=== PATIENT | male | born 1955 | race Caucasian/White ===

== ENCOUNTER → 2020-09-09 | Outpatient (CLI) | payer MEDICARE, OTHER ==
[~2020-09-09] MED LIST: OMEP20CA12
== END ==
LOC: CARD 15:25
PROVIDERS: ATTEND Nurse Practitioner Family
DX: Z13.6 Encounter for screening for cardiovascular disorders (principal)
CPT/HCPCS: 93005

== ENCOUNTER → 2020-12-10 | Outpatient (CLI) | payer MEDICARE, OTHER ==
--- NOTE | 2020-12-10 11:09 | Diagnostic Imaging Report ---
PROCEDURE: MRI lumbar spine. TECHNIQUE: Multiplanar, multisequence MRI of the lumbar spine was performed without contrast. INDICATION: Chronic low back pain. Recent heavy lifting. Radiculopathy. COMPARISON: Lumbar spine radiographs 01/18/2010. FINDINGS: There are 5 lumbar-type vertebral bodies for the purposes of this report. Normal alignment. Vertebral body heights are preserved. Moderate degenerative endplate changes are greatest in the thoracolumbar junction. No abnormal signal in the conus which terminates at T12-L1. Normal morphology of the cauda equina. No acute findings in the visualized paravertebral soft tissues or pelvis. T12-L1: Annular disc bulge results in moderate right and mild left lateral recess narrowing. Mild spinal canal narrowing. Moderate right neural foraminal narrowing. L1-L2: Annular disc bulge and facet arthropathy results in severe left and mild right lateral recess narrowing. Moderate spinal canal narrowing. Severe right and moderate left neural foraminal narrowing. L2-L3: Annular disc bulge and facet arthropathy result in moderate spinal canal and bilateral lateral recess narrowing. Severe left and moderate right neural foraminal narrowing. L3-L4: Annular disc bulge, ligamentous hypertrophy and facet arthropathy all result in moderate to severe spinal canal stenosis. Severe right and moderate left lateral recess narrowing. Moderate bilateral neural foraminal narrowing. L4-L5: Annular disc bulge, ligamentous hypertrophy and facet arthropathy all result in severe spinal canal stenosis. Moderate to severe bilateral neural foraminal narrowing. L5-S1: Central disc protrusion results in mild spinal canal and bilateral lateral recess narrowing. Facet arthropathy also contributes to mild bilateral neural foraminal narrowing. IMPRESSION: 1. Spondylotic changes result in severe spinal canal stenosis at L4-L5, moderate to severe at L3-L4 and moderate at L1-L2 and L2-L3. 2. Multilevel high-grade lateral recess and neural foraminal narrowing detailed above level by level. 3. No acute osseous findings. Dictated by: Dictated on workstation # [id number]
== END ==
LOC: RAD 09:08
PROVIDERS: ATTEND Nurse Practitioner Family
DX: M48.07 Spinal stenosis, lumbosacral region (principal); M51.17 Intervertebral disc disorders with radiculopathy, lumbosacral region; M47.26 Other spondylosis with radiculopathy, lumbar region; M51.15 Intervertebral disc disorders with radiculopathy, thoracolumbar region; M48.05 Spinal stenosis, thoracolumbar region; X50.0XXA Overexertion from strenuous movement or load, initial encounter
CPT/HCPCS: 72148

== ENCOUNTER → 2021-11-02 | Outpatient (CLI) | payer MEDICARE, OTHER ==
--- NOTE | 2021-11-02 12:56 | Diagnostic Imaging Report ---
PROCEDURE: US Scrotum. TECHNIQUE: Multiple Real-time grayscale images were obtained over the scrotum in various projections bilaterally. INDICATION: Right testicular pain. FINDINGS: The right testicle measures 4.8 x 2.0 x 2.6 cm and the left testicle measures 4.5 x 2.0 x 2.8 cm. Both testes demonstrate a homogeneous echotexture. No discrete testicular mass is detected. There is blood flow to both testes. There is a tiny 2 to 3 mm left epididymal head cyst. Both epididymides do show some parenchymal heterogeneity and perhaps some slight increased vascularity which may be owing to epididymitis. There is no hydrocele or varicocele present. IMPRESSION: 1. No evidence of testicular mass or vascular compromise. 2. There is some mild enlargement and slight increased vascularity to the epididymides bilaterally, perhaps on the basis of epididymitis. No other significant abnormality is detected. Dictated by: Dictated on workstation # [id number]
== END ==
LOC: RAD 11:15
PROVIDERS: ATTEND Nurse Practitioner Family
DX: N50.811 Right testicular pain (principal)
CPT/HCPCS: 76870

== ENCOUNTER 2022-11-16 05:36 | Outpatient (CLI) | payer MEDICARE, OTHER ==
[~2022-11-16] VITALS: Ht 180.3 cm; Wt 89.5 kg
[2022-11-16] MEDS ORDERED: OXYB5TAB13 PO (15:33)
[2022-11-16] MEDS ORDERED: HYDR-3820 PO (15:33)
[2022-11-16] MEDS ORDERED: AMT10T PO (15:33)
== END 2022-11-16 15:51 | disposition home or self-care (01) ==
LOC: PREOP 05:36
PROVIDERS: ATTEND Specialist
DX: Z01.818 Encounter for other preprocedural examination (principal)

== ENCOUNTER 2022-11-24 06:30 | Day surgery (SDC) | payer MEDICARE, OTHER ==
[~2022-11-24] VITALS: Ht 180.3 cm; Wt 89.5 kg
[~2022-11-24 06:30] MED LIST changes: +AMT10T PO; +HYDR-3820 PO; +OXYB5TAB13 PO
[2022-11-24 06:40] VITALS: BP 132/89
[2022-11-24] MEDS ORDERED: MIDAZOLAM 2 MG/2 ML (VERSED) VIAL ONE (06:44)
[2022-11-24] MEDS: TETRACAINE 0.5% OPHTH SOLN 4 ML BTL (SINGLE DOSE ONLY) OU PRN ×4 (06:55→07:09)
[2022-11-24] MEDS ORDERED: MOXIFLOXACIN OPHTH SOLN 5 MG/ML 0.3 ML SYRINGE OP ONE (07:00)
[2022-11-24] MEDS ORDERED: TIMOLOL 0.5% (CATARACTS) 0.3 ML BTL OU PRN (07:00)
[2022-11-24] MEDS ORDERED: POVIDONE (BETADINE) OPHTH SOLN 5% 30 ML OP ONE (07:00)
[2022-11-24] MEDS: TROPICAMIDE 1% OPH SOLN (MYDRIACYL) 15 ML BTL OP SCH ×3 (07:01→07:13)
[2022-11-24] MEDS: PHENYLEPHRINE 10% OPHTH (NEO-SYN) 5 ML BTL OU SCH ×3 (07:01→07:13)
--- NOTE | 2022-11-24 08:05 | Ophthalmology Operative Report ---
Cataract removal/placement IOL PREOPERATIVE DIAGNOSIS: Cataract Right Eye POSTOPERATIVE DIAGNOSIS: Cataract Right Eye PROCEDURE: Cataract removal and placement of posterior chamber implant, right eye SURGEON: Galdino Maynard ANESTHESIA: Topical with sedation COMPLICATIONS: None ESTIMATED BLOOD LOSS: Minimal DESCRIPTION OF PROCEDURE: After proper informed consent was obtained, the patient, a 67 male, was taken to the Operating Room and the right eye was anesthetized with tetracaine. The right eye was then prepped and draped in the usual manner. A wire lid speculum was placed. A paracentesis was made at the left hand position. Preservative free lidocaine was injected into the anterior chamber followed by viscoelastic. A clear corneal incision was made in the temporal position. A capsulorrhexis was preformed and the central nuclear and cortical material were removed. The posterior capsule was polished and Nitin 20.5 AU00T0 IOL was placed into the capsular bag. The residual viscoelastic was aspirated and balanced saline solution was injected into the anterior chamber. Moxifloxacin was injected into the anterior chamber. The wound was checked and found to be water tight. The patient tolerated the procedure well without complications. GALDINO MAYNARD MD Nov 24, 2022 08:05
--- NOTE | 2022-11-24 08:05 | Ophthalmologist Pre-Op Note ---
Pre-Operative Progress Note H&P Reviewed The H&P was reviewed, patient examined and no changes noted. Date H&P Reviewed: Nov 24, 2022 Time H&P Reviewed: 07:40 Pre-Op Dx Cataract, Right Eye PETRA MAYNARD MD Nov 24, 2022 08:05
[2022-11-24 08:16] VITALS: BP 140/80
[2022-11-24] MEDS ORDERED: acetaZOLAMIDE ER 500 MG CAP (DIAMOX SEQUELS) PO ONE (09:30)
--- NOTE | 2022-11-24 13:03 | Anesthesia-General Post-Op ---
MAC Patient Condition Mental Status/LOC: Same as Preop Cardiovascular: Satisfactory Nausea/Vomiting: Absent Respiratory: Satisfactory Pain: Controlled Complications: Absent Post Op Complications Complications None Follow Up Care/Instructions Patient Instructions None needed. Anesthesiology Discharge Order Discharge Order Patient is doing well, no complaints, stable vital signs, no apparent adverse anesthesia problems. No complications reported per nursing. ZEINAB HERNANDEZ CRNA Nov 24, 2022 13:03
== END 2022-11-24 08:18 | disposition home or self-care (01) ==
LOC: SDC 06:30
PROVIDERS: ATTEND Specialist
DX: H25.9 Unspecified age-related cataract (principal); F17.200 Nicotine dependence, unspecified, uncomplicated
CPT/HCPCS: 66984; V2632

== ENCOUNTER 2022-12-05 05:32 | Outpatient (CLI) | payer MEDICARE, OTHER | END 2022-12-05 17:03 | disposition home or self-care (01) | LOC: PREOP 05:32 | PROVIDERS: ATTEND Specialist | DX: Z01.818 Encounter for other preprocedural examination (principal) ==

== ENCOUNTER 2022-12-08 06:33 | Day surgery (SDC) | payer MEDICARE, OTHER ==
[~2022-12-08] VITALS: Ht 180.3 cm; Wt 89.5 kg
[2022-12-08] MEDS ORDERED: TIMOLOL 0.5% (CATARACTS) 0.3 ML BTL OU PRN (06:45)
[2022-12-08] MEDS ORDERED: POVIDONE (BETADINE) OPHTH SOLN 5% 30 ML OP ONE (06:45)
[2022-12-08] MEDS ORDERED: MOXIFLOXACIN OPHTH SOLN 5 MG/ML 0.3 ML SYRINGE OP ONE (06:45)
[2022-12-08] MEDS: TETRACAINE 0.5% OPHTH SOLN 4 ML BTL (SINGLE DOSE ONLY) OU PRN ×4 (06:47→07:12)
[2022-12-08 06:51] VITALS: BP 133/84
[2022-12-08] MEDS: PHENYLEPHRINE 10% OPHTH (NEO-SYN) 5 ML BTL OU SCH ×3 (06:55→07:12)
[2022-12-08] MEDS: TROPICAMIDE 1% OPH SOLN (MYDRIACYL) 15 ML BTL OP SCH ×3 (06:55→07:12)
[2022-12-08] MEDS ORDERED: MIDAZOLAM 2 MG/2 ML (VERSED) VIAL ONE (07:12)
--- NOTE | 2022-12-08 07:52 | Ophthalmology Operative Report ---
Cataract removal/placement IOL PREOPERATIVE DIAGNOSIS: Cataract Left Eye POSTOPERATIVE DIAGNOSIS: Cataract Left Eye PROCEDURE: Cataract removal and placement of posterior chamber implant, left eye SURGEON: Galdino Maynard ANESTHESIA: Topical with sedation COMPLICATIONS: None ESTIMATED BLOOD LOSS: Minimal DESCRIPTION OF PROCEDURE: After proper informed consent was obtained, the patient, a 67 male, was taken to the Operating Room and the left eye was anesthetized with tetracaine. The left eye was then prepped and draped in the usual manner. A wire lid speculum was placed. A paracentesis was made at the left hand position. Preservative free lidocaine was injected into the anterior chamber followed by viscoelastic. A clear corneal incision was made in the temporal position. A capsulorrhexis was preformed and the central nuclear and cortical material were removed. The posterior capsule was polished and an Nitin 21.0 AU00T0 was placed into the capsular bag. The residual viscoelastic was aspirated and balanced saline solution was injected into the anterior chamber. Moxifloxacin was injected into the anterior chamber. The wound was checked and found to be water tight. The patient tolerated the procedure well without complications. GALDINO MAYNARD MD December 08, 2022 07:52
--- NOTE | 2022-12-08 07:52 | Ophthalmologist Pre-Op Note ---
Pre-Operative Progress Note H&P Reviewed The H&P was reviewed, patient examined and no changes noted. Date H&P Reviewed: December 08, 2022 Time H&P Reviewed: 07:22 Pre-Op Dx Cataract, Left Eye PETRA MAYNARD MD December 08, 2022 07:52
[2022-12-08 08:01] VITALS: BP 125/79
[2022-12-08] MEDS ORDERED: acetaZOLAMIDE ER 500 MG CAP (DIAMOX SEQUELS) PO ONE (09:30)
--- NOTE | 2022-12-08 13:07 | Anesthesia-General Post-Op ---
MAC Patient Condition Mental Status/LOC: Same as Preop Cardiovascular: Satisfactory Nausea/Vomiting: Absent Respiratory: Satisfactory Pain: Controlled Complications: Absent Post Op Complications Complications None Follow Up Care/Instructions Patient Instructions None needed. Anesthesiology Discharge Order Discharge Order Patient is doing well, no complaints, stable vital signs, no apparent adverse anesthesia problems. No complications reported per nursing. ZEINAB HERNANDEZ CRNA December 08, 2022 13:07
== END 2022-12-08 08:02 | disposition home or self-care (01) ==
LOC: SDC 06:33
PROVIDERS: ATTEND Specialist
DX: H25.9 Unspecified age-related cataract (principal); F17.200 Nicotine dependence, unspecified, uncomplicated
CPT/HCPCS: 66984; V2632

== ENCOUNTER 2023-04-04 05:50 | Outpatient (CLI) | payer MEDICARE, OTHER ==
[~2023-04-04] VITALS: Ht 180.3 cm; Wt 90.9 kg
[2023-04-04] MEDS ORDERED: PREG50CA65 PO (11:39)
[2023-04-04] MEDS ORDERED: HYOS-6 PO (11:39)
[2023-04-04] MEDS ORDERED: CYCL10TA25 PO (11:39)
== END 2023-04-04 11:51 | disposition home or self-care (01) ==
LOC: PREOP 05:50
PROVIDERS: ATTEND Internal Medicine
DX: Z01.818 Encounter for other preprocedural examination (principal)

== ENCOUNTER 2023-04-13 07:20 | Day surgery (SDC) | payer MEDICARE, OTHER ==
[~2023-04-13] VITALS: Ht 180 cm; Wt 90.9 kg
[~2023-04-13 07:20] MED LIST changes: +CYCL10TA25 PO; +HYOS-6 PO; +PREG50CA65 PO
[2023-04-13] MEDS ORDERED: LACTATED RINGERS 1,000 ML 1,000 ML IV STA (07:33)
[2023-04-13 07:45] VITALS: BP 136/92
--- NOTE | 2023-04-13 07:54 | Pre-Op Note & Conscious Sedat ---
Pre-Operative Progress Note Date H&P Reviewed: Apr 13, 2023 Time H&P Reviewed: 07:53 History & Physical: H&P Reviewed, Patient Examed, No changes noted Pre-Op Diagnosis: screening Moderate Sedation PreProcedure ASA Score 2 Airway Lungs Heart ASA score ASA 1: a normal healthy patient ASA 2: a patient with a mild systemic disease (mid diabetes, controlled hypertension, obesity ASA 3: a patient with a severe systemic disease that limits activity (angina, COPD, prior Myocardial infarction) ASA 4: a patient with an incapacitating disease that is a constant threat to life (CHF, renal failure) ASA 5: a moribund patient not expected to survive 24 hrs. (ruptured aneurysm) ASA 6: a declared brain- patient whose organs are being harvested. For emergent operations, add the letter E after the classification Mallampati Classification Grade 1 Sedation Plan Analgesia, Amnesia, Plan communicated to team members, Discussed options with patient/fam, Discussed risks with patient/fam The patient is an appropriate candidate to undergo the planned procedure, sedation, and anesthesia. The patient immediately re-assessed prior to indication. OSEI SHERMAN MD Apr 13, 2023 07:54
--- NOTE | 2023-04-13 08:59 | Anesthesia-General Post-Op ---
MAC Patient Condition Mental Status/LOC: Same as Preop Cardiovascular: Satisfactory Nausea/Vomiting: Absent Respiratory: Satisfactory Pain: Controlled Complications: Absent Post Op Complications Complications None Follow Up Care/Instructions Patient Instructions None needed. Anesthesiology Discharge Order Discharge Order Patient is doing well, no complaints, stable vital signs, no apparent adverse anesthesia problems. No complications reported per nursing. PARK CALABRESE CRNA Apr 13, 2023 08:59
--- NOTE | 2023-04-13 08:59 | Progress Note-Post Operative ---
Post-Procedure Note Physician (s)/Crochet Beader (s) Physician OSEI SHERMAN MD Pre-Procedure Diagnosis Pre-Procedure Diagnosis: screening Post-Procedure Diagnosis Post-operative diagnosis: Prior to undergoing colonoscopy digital rectal evaluation was performed. Anal suture tone was normal and the perianal reflexes intact. Prostate is normal in size and a nodular on digital inspection. No abnormalities were noted on digital inspection anal canal or distal rectal vault. The colonoscope was then inserted into the rectum and under direct visualization advanced to the cecum. The cecum was identified by identification of the appendiceal orifice and the ileocecal valve. Photographic documentation was obtained. Careful inspection was made as the colonoscope withdrawn. Quality prep was good. Findings there are no evidence for internal or external hemorrhoids. Present in the proximal rectum was 4 mm sessile hyperplastic appearing polyp was biopsied and ablated with no subsequent blood loss. Mild diverticular disease confined to the sigmoid colon was noted without evidence for diverticulitis. Present in the distal descending colon was a approximate 2 cm lipoma. The remainder the descending colon was unremarkable. Splenic flexure was unremarkable present in the distal transverse colon was a 6 mm sessile polyp it was biopsied and ablated with no blood loss. A 3 mm sessile polyp was noted in the proximal transverse colon it was closely biopsied and ablated. The hepatic flexure ascending colon and cecum were unremarkable. A/P 1. Mild diverticular disease confined sigmoid colon is present without evidence of diverticulitis. 2. 3 polyps were removed today via hot forceps from the proximal rectum distal transverse and proximal transverse colon. I will advise repeat surveillance colonoscopy in 3 years. OSEI SHERMAN MD Apr 13, 2023 08:59
[2023-04-13 09:00] VITALS: BP 142/68
[2023-04-13 09:05] VITALS: BP 119/58
[2023-04-13 09:10] VITALS: BP 107/72
[2023-04-13 09:40] VITALS: BP 107/72
== END 2023-04-13 09:48 | disposition home or self-care (01) ==
LOC: ENDO 07:20
PROVIDERS: ATTEND Internal Medicine
DX: D12.3 Benign neoplasm of transverse colon (principal); K63.5 Polyp of colon; K62.1 Rectal polyp; K57.30 Diverticulosis of large intestine without perforation or abscess without bleeding; D17.5 Benign lipomatous neoplasm of intra-abdominal organs; K58.0 Irritable bowel syndrome with diarrhea; F17.210 Nicotine dependence, cigarettes, uncomplicated